=== PATIENT | female | born 1960 | race Caucasian/White ===

== ENCOUNTER 2025-01-26 19:50 | Observation (INO) | payer OTHER ==
[2025-01-26 20:20] LABS: HEMATOCRIT 42.4 % (32.4-45.2); HEMOGLOBIN 14.5 G/dL (10.7-15.3); MCH 29.5 pg (25.7-33.7); MCHC 34.2 g/dl (32.0-36.0); MEAN CELL VOLUME 86.4 fl (80-96); MEAN PLT VOLUME 8.9 fl (7.5-11.1); PLATELET COUNT 262.7 10^3/uL (134-434); RBC 4.91 10^6/uL (3.60-5.2); WHITE BLOOD COUNT 10.2 10^3/uL (4.0-10.8)
[2025-01-26 20:48] LABS: ALBUMIN 4.4 g/dl (3.4-5.0); ALK PHOS 58 U/L (45-117); ANION GAP 11 mmol/L (4-13); BILIRUBIN,TOTAL 0.4 mg/dl (0.2-1); CALCIUM 9.8 mg/dl (8.5-10.1); CHLORIDE 101 mmol/L (98-107); CO2 26 mmol/L (21-32); CREATININE 0.8 mg/dl (0.6-1.3); GLUCOSE,RANDOM 101 mg/dl (74-106); MAGNESIUM 2.1 mg/dL (1.8-2.4); SGOT/AST 21 U/L (15-37); SGPT/ALT 14 U/L (7-52); SODIUM 138 mmol/L (136-145); TOT PROT 6.8 g/dl (6.4-8.2)
[2025-01-26 21:01] LABS: POTASSIUM 4.4 mmol/L (3.5-5.1)
[2025-01-27 01:20] VITALS: BMI 29.1
[2025-01-27] MEDS: SODIUM CHLORIDE 1,000 ML IV SCH (01:31)
[2025-01-27 06:57] VITALS: PULSE 69
[2025-01-27 10:12] LABS: CALCIUM 9.6 mg/dl (8.5-10.1); CREATININE 0.7 mg/dl (0.6-1.3); POTASSIUM 4.2 mmol/L (3.5-5.1)
[2025-01-27 10:31] VITALS: BP 114/72; RESP 18; TEMP 98.2
[2025-01-27 11:48] LABS: BASO % 0.7 % (0-2.0); EOS % 1.7 % (0-4.5); HEMATOCRIT 38.9 % (32.4-45.2); HEMOGLOBIN 12.8 GM/dL (10.7-15.3); LYMPH % 17.7 % (8-40); MCH 28.2 pg (25.7-33.7); MCHC 32.9 g/dl (32.0-36.0); MEAN CELL VOLUME 85.6 fl (80-96); MEAN PLT VOLUME 8.9 fl (7.5-11.1); MONO % 9.2 % (3.8-10.2); NEUT % 70.7 % (42.8-82.8); PLATELET COUNT 248 10^3/uL (134-434); RBC 4.54 M/mm3 (3.60-5.2); RDW 13.6 % (11.6-15.6)
[2025-01-27] MEDS: ACETAMINOPHEN 325 MG TABLET (FP) PO PRN (12:50)
== END 2025-01-27 13:31 | disposition home or self-care (01) ==
LOC: FER 19:50 → FM/S 01-27 00:14
PROVIDERS: ADMIT Student in an Organized Health Care Education/Training Program; ATTEND Internal Medicine
PROC: 3E0337Z Introduction of Electrolytic and Water Balance Substance into Peripheral Vein, Percutaneous Approach (ICD-10-PCS; principal; 2025-01-27)
DX: R55 Syncope and collapse (principal); W18.39XA Other fall on same level, initial encounter; Y93.89 Activity, other specified; Y92.511 Restaurant or cafe as the place of occurrence of the external cause; Z90.49 Acquired absence of other specified parts of digestive tract; Z90.79 Acquired absence of other genital organ(s); Z87.738 Personal history of other specified (corrected) congenital malformations of digestive system
CPT/HCPCS: 36415; 70450-TC; 80048; 80053; 80061; 81003; 81015; 82550; 83036; 83735; 84484; 85025; 85027; 93005; 96360; 99285-25; G0378